=== PATIENT | female | born 1940 | race Caucasian/White ===

== ENCOUNTER 2019-05-19 18:56 | Emergency (ER) | payer OTHER ==
[~2019-05-19] VITALS: Ht 147.3 cm; Wt 58.2 kg
[2019-05-19 22:44] VITALS: BP 157/75
== END 2019-05-19 23:30 | disposition home or self-care (01) ==
LOC: M ED 18:56
DX: K94.09 Other complications of colostomy (principal); I10 Essential (primary) hypertension; Z87.891 Personal history of nicotine dependence; Z88.5 Allergy status to narcotic agent

== ENCOUNTER → 2019-06-02 | Outpatient (CLI) | payer MEDICARE ==
[2019-06-02 16:51] LABS: BASO # 0.2 10^3/uL (0.0-0.2); BASO % 1.4 % (0.0-1.0); EOS # 2.6 10^3/uL (0.0-0.5); HEMATOCRIT 38.3 % (36.0-47.0); HEMOGLOBIN 12.4 g/dl (12.0-15.5); LYMPH # 1.6 10^3/uL (1.5-5.0); LYMPH % 13.5 % (24.0-44.0); MEAN CORPUSCULAR HEMOGLOBIN 30.5 pg (27.0-33.0); MEAN CORPUSCULAR HGB CONC 32.4 g/dl (32.0-36.5); MEAN CORPUSCULAR VOLUME 94.1 fl (80.0-96.0); MONO % 8.7 % (0.0-5.0); NEUTROPHILS % 52.4 % (36.0-66.0); PLATELET COUNT, AUTOMATED 469 10^3/uL (150-450); RED BLOOD COUNT 4.07 10^6/uL (4.00-5.40); WHITE BLOOD COUNT 11.5 10^3/uL (4.0-10.0)
[2019-06-02 17:13] LABS: ALBUMIN 3.5 GM/DL (3.2-5.2); ALT/SGPT 17 U/L (12-78); BILIRUBIN,TOTAL 0.7 MG/DL (0.2-1.0); BLOOD UREA NITROGEN 13 MG/DL (7-18); CALCIUM LEVEL 8.9 MG/DL (8.8-10.2); CARBON DIOXIDE LEVEL 27 MEQ/L (21-32); CHLORIDE LEVEL 104 MEQ/L (98-107); CREATININE FOR GFR 0.74 MG/DL (0.55-1.30); GLOMERULAR FILTRATION RATE > 60.0 (>39); GLUCOSE, FASTING 104 MG/DL (70-100); POTASSIUM SERUM 3.9 MEQ/L (3.5-5.1); SODIUM LEVEL 137 MEQ/L (136-145); TOTAL PROTEIN 7.3 GM/DL (6.4-8.2)
[2019-06-02 17:34] LABS: EOS % 22.6 % (0.0-3.0)
== END ==
LOC: M LAB 15:36
PROVIDERS: ATTEND Surgery
DX: K56.690 Other partial intestinal obstruction (principal)

== ENCOUNTER → 2019-06-10 | Outpatient (CLI) | payer MEDICARE ==
[~2019-06-10] MED LIST: AMBI10TA PO; AMLO10TA5 PO; GASTROGRAFIN SOLUTION 30ML (Q9963) As Ordered ONE; ISOVUE-370 76% 100ML VIAL (Q9967) As Ordered ONE
--- NOTE | 2019-06-11 08:41 | REP ---
CT ABDOMEN AND PELVIS WITH IV AND ORAL CONTRAST: HISTORY: Partial versus complete intestinal obstruction. The patient gives a history of cholecystectomy, hysterectomy, and colostomy. No comparison images are available at this juncture. CT CONTRAST DOSE: 100 mL of intravenous Isovue-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 There are clips in the right upper quadrant. There is a 15 x 21 x 13 mm nodular density with some adjacent fibrosis in the right middle lobe medially adjacent to the mediastinum. This is of uncertain significance. The lung bases are otherwise clear. There is some linear fibrosis in left lower and right lower lobes. No pleural effusion is seen. There are two small subcentimeter low density areas in the liver, consistent with cysts or hemangiomas. These measure 11 and 9 mm in greatest diameter, respectively. No other focal liver lesion is seen. Gallbladder surgically absent. The spleen is normal in size, homogeneous in texture. No abnormalities noted in the pancreas. There is a descending duodenal diverticulum which is fairly large. No adrenal abnormality is observed. There is a tiny subcentimeter cyst in the upper pole of the left kidney with some cortical atrophy. No hydronephrosis is seen. No retroperitoneal mass or adenopathy is seen. There is a diverting colostomy in the right mid abdomen. Small and large bowel loops are otherwise unremarkable in the abdomen. Pelvic CT images demonstrate mild diverticulosis of the sigmoid colon. There is no CT evidence of diverticulitis. No colonic mass lesion is observed. The colon is empty distal to the transverse colostomy. The appendix is not directly visualized, but there is no inflammatory focus at the cecum. No abdominal wall defect is seen. Urinary bladder is unremarkable. Uterus is surgically absent. No significant bony abnormality. IMPRESSION: Transverse colostomy in the right mid abdomen. Mild sigmoid colon diverticulosis. No evidence of bowel obstruction. Descending duodenal diverticulum noted. Post cholecystectomy and hysterectomy. There is a 20 mm nodular opacity in the right middle lobe adjacent to the mediastinum. This is of uncertain significance. Recommend chest CT study. Electronically Signed by Miko Melendez MD 06/11/2019 09:50 A
== END ==
LOC: M RAD 15:56
PROVIDERS: ATTEND Surgery
DX: K56.699 Other intestinal obstruction unspecified as to partial versus complete obstruction (principal); Z93.3 Colostomy status; K57.50 Diverticulosis of both small and large intestine without perforation or abscess without bleeding; R91.8 Other nonspecific abnormal finding of lung field
CPT/HCPCS: 74177; Q9963; Q9967

== ENCOUNTER 2019-06-12 12:48 | Day surgery (SDC) | payer MEDICARE ==
[~2019-06-12] VITALS: Ht 149.9 cm; Wt 58.5 kg
[~2019-06-12 12:48] MED LIST changes: -GASTROGRAFIN SOLUTION 30ML (Q9963) As Ordered ONE; -ISOVUE-370 76% 100ML VIAL (Q9967) As Ordered ONE; +NS 1,000 ML IV ONE
[2019-06-12] MEDS ORDERED: PROPOFOL 200 MG/20 ML VIAL As Ordered ONE (14:23)
[2019-06-12] MEDS ORDERED: LIDOCAINE 2% INJ 100 MG/5 ML SDV (FOR ANES.) As Ordered ONE (14:23)
[2019-06-12] MEDS ORDERED: LABETALOL HCL 100 MG/20 ML VIAL As Ordered ONE (15:05)
[2019-06-12 16:05] VITALS: BP 138/87
--- NOTE | 2019-06-12 16:05 | ROOR ---
Patient Name: Yuko Alves Procedure Date: 06/12/2019 2:52 PM Date of : 1940 Age: 78 Room: [facility] Gender: Female Note Status: Finalized Procedure: Colonoscopy Indications: Follow-up endoscopy after surgery, Follow-up of colonic obstruction. A transverse loop colostomy was created in [place] in early April for a colonic obstruction. Providers: Kedra Priest MD Referring MD: Maria E Clarke Do Requesteliana Provider: Medicines: Monitored Anesthesia Care Complications: No immediate complications. Procedure: Pre-Anesthesia Assessment: - Prior to the procedure, a History and Physical was performed, and patient medications and allergies were reviewed. The patient is competent. The risks and benefits of the procedure and the sedation options and risks were discussed with the patient. All questions were answered and informed consent was obtained. Patient identification and proposed procedure were verified by the physician, the nurse and the anesthesiologist in the procedure room. Mental Status Examination: alert and oriented. Airway Examination: normal oropharyngeal airway and neck mobility. CV Examination: regular rate and rhythm. Prophylactic Antibiotics: The patient does not require prophylactic antibiotics. Prior Anticoagulants: The patient has taken no previous anticoagulant or antiplatelet agents. ASA Grade Assessment: II - A patient with mild systemic disease. After reviewing the risks and benefits, the patient was deemed in satisfactory condition to undergo the procedure. The anesthesia plan was to use monitored anesthesia care (MAC). Immediately prior to administration of medications, the patient was re-assessed for adequacy to receive sedatives. The heart rate, respiratory rate, oxygen saturations, blood pressure, adequacy of pulmonary ventilation, and response to care were monitored throughout the procedure. The physical status of the patient was re-assessed after the procedure. The Colonoscope was introduced through the anus and advanced to the sigmoid colon. The colonoscopy was performed without difficulty. The patient tolerated the procedure well. The quality of the bowel preparation was excellent. The Colonoscope was introduced through the transverse colostomy and advanced to the sigmoid colon to examine a stricture. This was the intended extent. The Colonoscope was introduced through the transverse colostomy and advanced to the cecum, identified by appendiceal orifice and ileocecal valve. Findings: The perianal and digital rectal examinations were normal. The proximal transverse colon, hepatic flexure, ascending colon and cecum appeared normal. Multiple medium-mouthed diverticula were found in the sigmoid colon and descending colon. A benign-appearing, intrinsic severe stenosis measuring of unknown length was found in the sigmoid colon and was non-traversed. An obstruction was identified in the sigmoid colon both on insertion of the scope from below and from above via the ostomy. This was at approximately 25 cm from the anal verge. There was no mass seen. A diffuse area of moderately erythematous mucosa was found in the rectum, in the sigmoid colon, in the descending colon, at the splenic flexure and in the distal transverse colon. The appearance was consistent with some "disuse colitis". Impression: - The proximal transverse colon, hepatic flexure, ascending colon and cecum are normal. - Diverticulosis in the sigmoid colon and in the descending colon. - Stricture in the sigmoid colon. - Erythematous mucosa in the rectum, in the sigmoid colon, in the descending colon, at the splenic flexure and in the distal transverse colon. - No specimens collected. Recommendation: - Discharge patient to home. - Resume previous diet. - Continue present medications. - Return to my office at appointment to be scheduled. - Return to schedule colectomy. Kedar Pirest MD Kedar Priest MD 06/12/2019 4:04:30 PM Electronically signed by Kedar Priest MD Number of Addenda: 0 Note Initiated On: 06/12/2019 2:52 PM Estimated Blood Loss: Estimated blood loss: none.
== END 2019-06-12 16:14 | disposition home or self-care (01) ==
LOC: M OPP 12:48
PROVIDERS: ATTEND Surgery
DX: K62.89 Other specified diseases of anus and rectum (principal); K63.89 Other specified diseases of intestine; K57.30 Diverticulosis of large intestine without perforation or abscess without bleeding; K56.699 Other intestinal obstruction unspecified as to partial versus complete obstruction; Z09 Encounter for follow-up examination after completed treatment for conditions other than malignant neoplasm; Z79.899 Other long term (current) drug therapy; Z88.5 Allergy status to narcotic agent; Z87.891 Personal history of nicotine dependence

== ENCOUNTER 2019-07-02 05:42 | Inpatient (IN) | payer MEDICARE ==
--- NOTE | 2019-06-29 21:57 | HPE ---
ANTICIPATED DATE OF ADMISSION: 07/02/2019 ADMITTING DIAGNOSIS: Sigmoid stricture with diverting transverse loop colostomy. HISTORY OF PRESENT ILLNESS: The patient is a 78-year-old woman who was living in [place] until quite recently. In early April, she presented to a local hospital there with abdominal pain and distension and findings consistent with a sigmoid colon obstruction. She underwent an emergency transverse loop colostomy on 04/24/2019. Once she had healed adequately she relocated to [place]. I saw her in the office on 06/02/2019 for the first time. She had a history of a previous colonoscopy which could not pass the sigmoid colon because of angulation. A workup to determine whether her obstruction was malignant or benign had not been performed in [place]. Her colostomy has been functioning well. She had some lab work done on 06/02/2019 that showed a very mild elevation of her white count to 12 with a significant percentage of eosinophils at 23%. Her chemistry profile showed no significant abnormalities of her liver or renal functions and her carcinoembryonic antigen was normal at 1.7. She was scheduled for a colonoscopy which was done on 06/12/2019. The scope was advanced into the rectum and also in through her loop colostomy which allowed the scope to be passed both proximally to the cecum and also distally to the sigmoid colon. Her colon revealed some diverticulosis within the descending and sigmoid colon. There was a significant stenosis or stricture with angulation in the region of the sigmoid colon. There were no mucosal abnormalities to suggest an underlying malignancy. There was some mild erythema of the rectum suggestive of some "disuse colitis." A CT scan of the abdomen and pelvis was done on 06/10/2019. This revealed her transverse colostomy. She had some mild diverticulosis seen with no evidence of diverticulitis. There were no obvious changes of bowel obstruction seen. Her gallbladder and uterus were both absent. She was noted to have a small nodular opacity in the right middle lobe of the lung adjacent to the mediastinum and this was felt to be of uncertain significance but a CT scan of the chest was recommended and this has not yet been accomplished. The patient is eager to eliminate her colostomy. She is now being admitted to undergo a robotic-assisted laparoscopic sigmoid colectomy as well as closure of her transverse loop colostomy. She is to perform an antibiotic bowel preparation with a limited bowel preparation mechanically as well the day prior to admission. ALLERGIES: The patient reports an allergy to MORPHINE mostly with some nausea and vomiting and some changes in her taste and smell when it is administered. MEDICATIONS: Her only current medication is: - amlodipine daily MEDICAL HISTORY: Is significant for essential hypertension. She denies any other active medical issues. PAST SURGICAL HISTORY: The patient has undergone a cholecystectomy and hysterectomy. She had a colonoscopy several times in the past and then underwent a scope on 06/12/2019. She also has undergone a carpal tunnel release in the past and in 2007 underwent a bilateral reduction mammoplasty. FAMILY HISTORY: Is significant for hypertension and heart disease in her mother and brother. SOCIAL HISTORY: She is a former smoker who quit in 1985. She denies any significant alcohol use. REVIEW OF SYSTEMS: The patient denies any chest pain or palpitations. She has had no cough, wheezing or sputum production. She denies any rectal bleeding. She denies constipation or diarrhea prior to this event. She denies any dysuria or hematuria. She has no significant bone or joint issues at this time. She has no history of DVT or pulmonary embolus. PHYSICAL EXAMINATION: Reveals a pleasant, older woman in no acute distress currently. She is alert and oriented. Skin is warm and dry. Sclerae are anicteric. Neck is supple without mass or bruit. Heart exam shows a regular rate and rhythm. Lungs are clear to auscultation bilaterally. The abdomen is thin and flat. She has an ostomy appliance in the epigastrium. She has a quite large stoma which is approximately 4-5 cm in width. This appears pink and healthy. The abdomen is otherwise nondistended. The abdomen is soft and nontender without appreciable mass. She does have an old scar in the lower abdomen. There is no sign of hernia. Lower extremities show no peripheral edema. She has intact radial and pedal pulses. IMPRESSION: 1. 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 2. Diverting loop transverse colostomy. 3. Hypertension. 4. Right middle lobe nodule pending further evaluation. PLAN: Patient is coming in on 07/02/2019 for sigmoid colectomy with anastomosis and closure of her transverse loop colostomy. She will perform a bowel prep the day before. She was counseled regarding the surgery. Risks include but are not limited to bleeding, infection, scarring, adverse drug reaction, need for further surgery, injury to internal organ, an anastomotic leak, and hernia. She was particularly counseled that she could develop a hernia through her ostomy site. I do not anticipate placing mesh at this site given the need to close the stoma through this incision and given its location in the epigastrium I think that a hernia could easily occur through here and need subsequent repair. The patient had an opportunity to ask questions about the surgery. She desires to proceed. GLORY
[2019-07-02] VITALS (7 sets, daily range): BP systolic 126–160; BP diastolic 67–88
[~2019-07-02] VITALS: Ht 147.3 cm; Wt 60.2 kg
[~2019-07-02 05:42] MED LIST changes: -NS 1,000 ML IV ONE
[2019-07-02] MEDS ORDERED: LACTATED RINGER'S 1000 ML IV ONE (07:00)
[2019-07-02] MEDS ORDERED: LR 1,000 ML IV ONE (07:00)
[2019-07-02] MEDS ORDERED: cefoTEtan DISODIUM 2 GM in D5W MINI-BAG PLUS 50 ML IV ONE ×2 (07:00→20:00)
[2019-07-02] MEDS ORDERED: ALVIMOPAN 12 MG CAPSULE (ENTEREG) PO ONE (07:00)
[2019-07-02 07:01] LABS: ALBUMIN 3.9 GM/DL (3.2-5.2); ALT/SGPT 20 U/L (12-78); BILIRUBIN,TOTAL 1.3 MG/DL (0.2-1.0); BLOOD UREA NITROGEN 12 MG/DL (7-18); CALCIUM LEVEL 9.7 MG/DL (8.8-10.2); CARBON DIOXIDE LEVEL 25 MEQ/L (21-32); CHLORIDE LEVEL 100 MEQ/L (98-107); CREATININE FOR GFR 0.95 MG/DL (0.55-1.30); GLOMERULAR FILTRATION RATE > 60.0 (>39); GLUCOSE, FASTING 118 MG/DL (70-100); POTASSIUM SERUM 3.2 MEQ/L (3.5-5.1); SODIUM LEVEL 136 MEQ/L (136-145); TOTAL PROTEIN 8.8 GM/DL (6.4-8.2)
[2019-07-02] MEDS ORDERED: PROPOFOL 200 MG/20 ML VIAL As Ordered ONE (07:03)
[2019-07-02] MEDS ORDERED: KETOROLAC 60 MG/2 ML VIAL (J1885) As Ordered ONE (07:03)
[2019-07-02] MEDS ORDERED: LIDOCAINE 2% INJ 100 MG/5 ML SDV (FOR ANES.) As Ordered ONE (07:03)
[2019-07-02] MEDS ORDERED: ONDANSETRON 4MG/2ML VIAL (J2405) As Ordered ONE (07:03)
[2019-07-02] MEDS ORDERED: dexameTHASONE 4 MG/ML 1ML VIAL (J1100) As Ordered ONE (07:03)
[2019-07-02] MEDS ORDERED: ROCURONIUM BROMIDE 50 MG/5 ML VIAL As Ordered ONE ×3 (07:03→09:54)
[2019-07-02] MEDS ORDERED: MIDAZOLAM INJ 2 MG/2 ML VIAL (J2250) As Ordered ONE (07:07)
[2019-07-02] MEDS ORDERED: fentaNYL 250 MCG/5 ML INJECTION (J3010) As Ordered ONE ×2 (07:07→09:03)
[2019-07-02] MEDS ORDERED: BUPIVACAINE HCL 0.25% 30 ML VIAL As Ordered ONE (07:13)
[2019-07-02] MEDS ORDERED: LACRILUBE (AKWA TEARS) OPHTH OINT 3.5 GM As Ordered ONE (07:49)
[2019-07-02] MEDS ORDERED: ACETAMINOPHEN 1000MG 100ML IV BTL (OFIRMEV) (J0131 PER 10MG) As Ordered ONE (08:07)
[2019-07-02] MEDS ORDERED: PHENYLephrine HCL 500 MCG/5 ML (100MCG/ML) SYRINGE (J2370) As Ordered ONE (08:10)
[2019-07-02] MEDS ORDERED: SUGAMMADEX SODIUM 500 MG/5 ML VIAL (BRIDION) As Ordered ONE (08:14)
[2019-07-02] MEDS ORDERED: ePHEDrine SULFATE 25 MG/5 ML(5MG/ML) SYRINGE As Ordered ONE (08:36)
[2019-07-02] MEDS ORDERED: LABETALOL HCL 100 MG/20 ML VIAL As Ordered ONE (09:22)
[2019-07-02] MEDS ORDERED: LR 1,000 ML IV SCH (14:00)
[2019-07-02] MEDS ORDERED: ONDANSETRON 4MG/2ML VIAL (J2405) IV PRN ×2 (14:00)
[2019-07-02] MEDS ORDERED: KETOROLAC 30 MG/ML VIAL (J1885) IV PRN (14:00)
[2019-07-02] MEDS ORDERED: PERCOCET 5MG/325MG TAB PO PRN (14:00)
[2019-07-02] MEDS ORDERED: METOCLOPRAMIDE INJ 10MG/2ML VIAL (J2765) IV PRN (14:00)
[2019-07-02] MEDS: fentaNYL 100 MCG/2 ML INJECTION (J3010) IV PRN ×4 (14:07→14:25)
[2019-07-02] MEDS: KETOROLAC 30 MG/ML VIAL (J1885) IV SCH ×2 (15:36→20:39)
[2019-07-02] MEDS: LR 1,000 ML IV SCH ×2 (15:37→20:40)
[2019-07-02] MEDS: oxyCODONE 5MG TAB PO PRN (17:07)
[2019-07-02] MEDS: ACETAMINOPHEN TAB 650MG DOSE (2X325MG) PO SCH ×2 (17:07→23:30)
[2019-07-02] MEDS: ALVIMOPAN 12 MG CAPSULE (ENTEREG) PO SCH (20:39)
--- NOTE | 2019-07-02 21:21 | ECGEPIP ---
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 Electronically Signed on 07-02-2019 21:21:30 EST by Hansel Carter
[2019-07-02] MEDS: ENOXAPARIN 40 MG/0.4 ML SYRINGE (J1650) SC SCH (23:28)
[2019-07-03 01:32] VITALS: BP 124/68
[2019-07-03] MEDS: KETOROLAC 30 MG/ML VIAL (J1885) IV SCH ×4 (02:19→20:16)
[2019-07-03 04:56] VITALS: BP 126/68
[2019-07-03] MEDS: ACETAMINOPHEN TAB 650MG DOSE (2X325MG) PO SCH ×4 (05:47→23:23)
[2019-07-03] MEDS: LR 1,000 ML IV SCH (05:50)
[2019-07-03 07:02] LABS: BASO # 0.1 10^3/uL (0.0-0.2); BASO % 0.9 % (0.0-1.0); EOS # 0.4 10^3/uL (0.0-0.5); EOS % 3.1 % (0.0-3.0); HEMATOCRIT 35.1 % (36.0-47.0); HEMOGLOBIN 11.3 g/dl (12.0-15.5); LYMPH # 1.1 10^3/uL (1.5-5.0); LYMPH % 9.3 % (24.0-44.0); MEAN CORPUSCULAR HEMOGLOBIN 30.1 pg (27.0-33.0); MEAN CORPUSCULAR HGB CONC 32.2 g/dl (32.0-36.5); MEAN CORPUSCULAR VOLUME 93.6 fl (80.0-96.0); MONO # 0.9 10^3/uL (0.0-0.8); MONO % 7.7 % (0.0-5.0); NEUTROPHILS # 9.2 10^3/uL (1.5-8.5); NEUTROPHILS % 78.7 % (36.0-66.0); PLATELET COUNT, AUTOMATED 312 10^3/uL (150-450); RED BLOOD COUNT 3.75 10^6/uL (4.00-5.40); WHITE BLOOD COUNT 11.6 10^3/uL (4.0-10.0)
[2019-07-03 07:41] LABS: ALBUMIN 2.5 GM/DL (3.2-5.2); ALT/SGPT 11 U/L (12-78); BILIRUBIN,TOTAL 1.3 MG/DL (0.2-1.0); BLOOD UREA NITROGEN 7 MG/DL (7-18); CALCIUM LEVEL 8.2 MG/DL (8.8-10.2); CARBON DIOXIDE LEVEL 25 MEQ/L (21-32); CHLORIDE LEVEL 106 MEQ/L (98-107); CREATININE FOR GFR 0.88 MG/DL (0.55-1.30); GLOMERULAR FILTRATION RATE > 60.0 (>39); GLUCOSE, FASTING 90 MG/DL (70-100); POTASSIUM SERUM 3.4 MEQ/L (3.5-5.1); SODIUM LEVEL 139 MEQ/L (136-145)
[2019-07-03] MEDS: ALVIMOPAN 12 MG CAPSULE (ENTEREG) PO SCH ×2 (08:02→20:15)
[2019-07-03] MEDS: amLODIPine 10 MG TAB PO SCH (08:04)
[2019-07-03] MEDS ORDERED: FLUBLOK(EGG FREE)(QUAD)INFLUENZA VACC 0.5ML SYRINGE (90682)18YRS&OLDER IM ONE (09:00)
[2019-07-03 10:09] VITALS: BP 154/73
[2019-07-03] MEDS: oxyCODONE 5MG TAB PO PRN (12:44)
[2019-07-03 15:21] VITALS: BP 171/76
[2019-07-03 20:39] VITALS: BP 166/77
[2019-07-03] MEDS: ENOXAPARIN 40 MG/0.4 ML SYRINGE (J1650) SC SCH (23:24)
[2019-07-04] MEDS: KETOROLAC 30 MG/ML VIAL (J1885) IV SCH ×3 (02:19→11:52)
[2019-07-04 05:27] VITALS: BP 160/80
[2019-07-04] MEDS: ACETAMINOPHEN TAB 650MG DOSE (2X325MG) PO SCH ×2 (05:44→11:52)
[2019-07-04] MEDS: ALVIMOPAN 12 MG CAPSULE (ENTEREG) PO SCH (08:34)
[2019-07-04 08:35] VITALS: BP 160/80
[2019-07-04] MEDS: amLODIPine 10 MG TAB PO SCH (08:35)
--- NOTE | 2019-07-04 10:35 | RO ---
DATE OF PROCEDURE: 07/02/2019 PREOPERATIVE DIAGNOSES: 1. Sigmoid stricture with colonic obstruction. 2. Transverse loop colostomy. POSTOPERATIVE DIAGNOSES: 1. Sigmoid stricture with colonic obstruction. 2. Transverse loop colostomy. PROCEDURES PERFORMED: 1. Robotic assisted laparoscopic sigmoid colectomy with coloproctostomy. 2. Takedown and closure of transverse loop colostomy. SURGEON: Kedar Priest MD MILITARY SOURCE OPERATIONS SPECIALIST: Rolando Angeles MD. Dr. Angeles's assistance was required for assistance in creating the colorectal anastomosis which also required assessing the health of the rectum and determining that additional resection was necessary. ANESTHESIA: General. INDICATIONS FOR THE PROCEDURE: The patient is a 78-year-old woman who in early April presented to a hospital in [place] where she was living at the time with a colonic obstruction in the sigmoid level. She underwent an urgent transverse loop colostomy. She did not have any further evaluation for her obstruction at that time. She relocated to [place]. A colonoscopy shows an angulated area in the sigmoid colon. This was identified on insertion of the scope from the rectum, but it was also impossible to pass the scope in an antegrade fashion through this region from her loop colostomy. The patient had a CT scan that did not identify a mass in the area and it was felt that her obstruction was likely related to scarring from diverticular disease. Her CEA was normal. She is now for a robotic assisted laparoscopic sigmoid colectomy with anastomosis and closure of her transverse loop colostomy. OPERATIVE PROCEDURE: The patient was brought to the operating room and placed on the table in a supine position. She was placed under general endotracheal anesthesia. A Freitas was inserted. She was moved into a low lithotomy position with the lower extremities in padded leg holders. Her colostomy appliance was removed and her stoma was covered with two gauze sponges and a large OpSite dressing was applied. The patient's abdomen and perineum were then prepped and draped sterilely. Initially, the location for four robotic trocar sites, beginning in the left upper quadrant and extending down to the right lower quadrant, were marked. 0.25% Marcaine was infiltrated as necessary. The initial entry was in the left upper quadrant. A Veress needle was inserted and after a positive hanging drop test the abdomen was inflated with carbon dioxide gas. An 8 mm port was placed over a 5 mm scope and this was advanced to the abdominal wall without difficulty. Initial inspection showed some filmy adhesions in the upper abdomen as well as some adhesions to the omentum in the right upper quadrant and right mid abdomen. A second 5 mm trocar was placed in the supraumbilical area. A 12 mm trocar was placed in the medial right lower quadrant and another 8 mm port was placed lower down and more lateral in the right lower quadrant. The robot was brought in from the left and docked to the camera port. Targeting took place in the left lower quadrant. The additional robotic arms were then docked. A grasping retractor was placed with a fourth bipolar and cauterizing scissors. Attention was turned to the descending and sigmoid colon. A few filmy adhesions were identified down in the general vicinity of the juncture of the descending colon and sigmoid colon. These were lysed. Dissection proceeded up along the descending colon, dividing the peritoneum laterally and developing the avascular plane to mobilize the colon medially. After this had been accomplished, about two-thirds of the way up the descending colon, dissection was directed distally. There was some significant scarring of the sigmoid colon to the anterior and lateral abdominal wall. Dissection proceeded gradually working as the plane was identified to mobilize the bowel away from the lateral abdominal wall. There was some significant thickening and angulation of the sigmoid colon. It was possible to mobilize this away from the lateral tissues. Once the sigmoid colon had been mobilized, I elected to transect the colon just proximal to the sigmoid colon. An opening was created through the mesentery. The bowel was then divided with a linear cutter 45 endoscopic stapler with a green load. The distal end of the colon was then elevated with the grasping retractor and using primarily the vessel sealer, dissection proceeded distally dividing the mesentery near the base of the mesentery. I dissected working distally dividing the peritoneum on the right and left sides of the distal sigmoid. The upper tissues of the mesorectum were then divided, also using the vessel sealer, and I worked distally to a point where it appeared that the bowel wall was much more pliant. The mesentery in this area was divided up to the wall of the colon and the bowel was divided with another load of the linear cutter 45 stapler. A second load was required to complete the division. The specimen was set aside within the abdomen. Some of the fibrofatty tissue at the tip of the rectal stump was dissected free to better expose the bowel wall. I elected to proceed with some additional mobilization of the descending colon. Therefore, further division of the attachments in the proximal descending colon was performed up to the level of the splenic flexure. The colon was mobilized nicely along the length of the descending colon and this appeared to give adequate length for an anastomosis in the pelvis. The robot was then undocked and removed. A short incision was made centered on the supraumbilical port site and a small Jason retractor was placed. The specimen was retrieved and sent for permanent pathology. The end of the descending colon was delivered through the wound. The staple line was excised. The wall of the bowel at this level appeared to be slightly thickened on one side, but otherwise soft and supple. A pursestring suture of #2-0 Prolene was placed in the end of the bowel and the anvil of a 29 mm EEA stapler was inserted and the pursestring tied down. This was then washed with saline and then reduced into the abdomen. The surgical team changed gown and gloves at this point. The fascia was closed with interrupted simple sutures of #1 Vicryl. The wound was filled with a moistened gauze. The abdomen was reinflated. Dr. Angeles then went down to the perineum and initially dilated the rectum gently with the EEA sizers. He then advanced the stapler into the anus and up the rectal stump. It seemed that he had been able to advance this just about to the end of the rectal stump, but when he advanced the post of the stapler this did not penetrate the tip of the bowel. With some additional manipulation, it did come closer, but when the post of the stapler was advanced it did not protrude enough for a secure attachment of the anvil. It was clear that there remained some narrowing of the upper end of the rectal stump. The stapler was removed. I elected to re-dock the robot. It was therefore docked with the remaining trocars and I proceeded to dissect an additional 5 cm or so of the rectal stump down to an area where the wall was clearly smooth and soft without any scarring. The area was transected with a linear cutter 45 stapler. This additional fragment was placed in an endopouch and set aside for removal later. With the robot still docked, Dr. Angeles introduced the stapler into the rectum and this time it was clear that it came all the way to the end of the rectal stump. The post of the stapler was advanced and the anvil was attached and fired. There were two excellent tissue donuts identified within the stapler. The bowel was clamped and the pelvis filled with saline and Dr. Angeles insufflated air using a colonoscope. Inspection of the anastomosis showed nice approximation of the tissues with no significant bleeding and no evidence of leak was identified. The anastomosis was estimated to be approximately 12-15 cm from the anal verge. The irrigation was suctioned from the pelvis. The additional fragment of rectum in the endopouch was moved into the upper abdomen. The patient was returned to a flat position. The robot was again undocked and removed. Surgical incisions were all closed with skin karrie. These were covered with moist lap pads and the dressing over her colostomy was removed. An elliptical skin incision was made completely surrounding the stoma with minimal excision of skin. Dissection was then carried down through the subcutaneous tissue circumferentially, freeing the edges of the bowel. The fascial opening was identified and cleared of overlying tissue. Once the colon had been completely freed, it was clear that the mesenteric wall of the bowel remained intact between the two lumens, one proximal and one distal. It was possible to fold the colon back together in such a way that the bowel continuity could be restored with two firings of a TX60G stapler. Several reinforcing sutures of #3-0 Vicryl were placed. The anastomosis appeared to have an adequate lumen with excellent vascularity. This was again irrigated and after ensuring hemostasis this was reduced back into the abdomen. The additional rectal specimen had been removed as the bowel was mobilized. The edges of the fascia were identified. The opening for the colostomy was at least 6-7 cm in length transversely by approximately 3 cm longitudinally. This opening was closed transversely with interrupted simple sutures of #1 Vicryl. The wound was irrigated and several sutures of #2-0 chromic were placed to close the subcutaneous tissue and the skin incision was closed with karrie. The patient's wounds were all dressed with sterile dressings. I elected to leave her Freitas catheter in place overnight. The patient was then awakened in the operating room, extubated and moved to the recovery room in stable condition. GLORY
--- NOTE | 2019-07-04 15:24 | IPN ---
DATE: 07/03/2019 HISTORY: The patient is now postop day #1 from a robotic-assisted sigmoid colectomy with coloproctostomy and takedown of her transverse loop colostomy. She has done very well since surgery. She has been taking liquids well. She reports she has been passing some gas. She is having fairly little pain. She denies any nausea or vomiting. VITAL SIGNS: She has been afebrile. Her pulse has been in the 70s generally. Her blood pressure has been ranging from 120s to as high as 171 systolic. Intake and output show that yesterday she had a total of 3400 in with 1825 out. Her urine output was almost 1800 yesterday. PHYSICAL EXAMINATION: The patient is alert. She is oriented. Heart exam shows a regular rhythm. The lungs are clear. The abdomen is flat. Her dressings are dry. She has bowel sounds present and the abdomen is without any undue tenderness. Laboratory studies include a CBC that showed a white count of 12, hemoglobin of 11, hematocrit 35 and platelet count of 312,000. Differential count showed 79% neutrophils, 9% lymphocytes and 8% monocytes. Chemistry profile showed a sodium of 139, potassium 3.4, chloride 106, CO2 of 25, BUN of 7, creatinine 0.88 and a glucose of 90. IMPRESSION: The patient is doing extremely well. She has been tolerating clear liquids without difficulty. PLAN: The patient will be advanced to a regular diet. Her Freitas catheter will be removed. I will saline lock her IV. The patient was encouraged to be up ambulating. I would anticipate she will be ready for discharge in the next 1-2 days. GLORY
--- NOTE | 2019-07-04 15:28 | IPN ---
DATE: 07/04/2019 HISTORY: The patient is now postop day #2 from a robotic-assisted laparoscopic sigmoid colectomy with coloproctostomy and takedown of her transverse loop colostomy. The patient is doing extremely well and when I walked into her room she asked if she could go home. She denies any nausea or vomiting. She has had several generally loose bowel movements. She is passing gas. She has very little discomfort. She has been getting some routine low-dose Toradol and Tylenol on a scheduled basis. She had one Vincent tablet yesterday. VITAL SIGNS: She has been afebrile. Her pulse is in the 70s and her blood pressure is running in the low to mid 160s systolic with a normal diastolic pressure. Intake and output show that yesterday she had 3300 in with 5000 out. She has not been reporting all of her bowel movements to the nurses. PHYSICAL EXAMINATION: She is alert and oriented and looks comfortable. Her abdomen is flat. Dressings are all removed and her wounds are all clean with no sign of infection. She has active bowel sounds and the abdomen is soft with no expected tenderness. IMPRESSION: The patient is doing extremely well postop day #2 from her surgery. PLAN: The patient will be discharged home. She will continue her current medication for blood pressure. She was encouraged to use [id number]-[id number] medications as necessary for pain. I advised her that if she discovers that she is having enough pain to warrant a narcotic pain reliever she can contact me and that could be provided. She will be allowed to shower ad cayden. She was advised against any strenuous physical activity. She will follow up in the office next week for removal of her surgical karrie. By then, we should also have her pathology report. GLORY
--- NOTE | 2019-07-14 18:18 | DSES ---
DATE OF ADMISSION: 07/02/2019 DATE OF DISCHARGE: 07/04/2019 ADMITTING DIAGNOSIS: Sigmoid stricture with diverting transverse loop colostomy. HISTORY OF PRESENT ILLNESS: The patient is a 78-year-old woman who in early April 2018 in [place] underwent an urgent transverse loop colostomy for a sigmoid colon obstruction. She subsequently relocated to [place]. She has been evaluated with CT scan and colonoscopy as to the etiology of her sigmoid obstruction. No tumor was identified and it is felt most likely that this is due to a diverticulitis-related stricture. She is now admitted to the hospital for sigmoid colectomy with takedown of her colostomy. HOSPITAL COURSE: The patient was admitted to the hospital on 07/02/2019. She was taken directly to the operating room. She underwent a robotic-assisted laparoscopic sigmoid colectomy with coloproctostomy as well as a takedown and closure of her transverse loop colostomy. Her postoperative course was unremarkable. Her diet was rapidly advanced back to regular and she had return of bowel function. She had little discomfort. She was discharged home on 07/04/2019. FINAL DIAGNOSES: 1. 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 2. Diverting transverse loop colostomy. 3. Hypertension. 4. Right middle lobe lung nodule, pending further evaluation. PROCEDURE PERFORMED: 1. Robotic-assisted laparoscopic sigmoid colectomy with coloproctostomy. 2. Takedown and closure of transverse loop colostomy. DISPOSITION: She was discharged home on 07/04/2019. She was taking a regular diet. She was advised that she could shower as desired. She was advised against any strenuous physical activity or lifting greater than 25 pounds. She was to call the office for fevers or chills, increasing abdominal pain or signs of infection. She was to followup in the office with me on 07/09/2019 at 11:00 o'clock in the morning. She was not provided any new medications. She was to take Tylenol or other iyku-jyv-fzrbvsw medications as needed for pain. GLORY
== END 2019-07-04 12:40 | disposition home or self-care (01) | DRG 331 ==
LOC: M OR 05:42 → M MS5PR 15:00
PROVIDERS: ADMIT Surgery; ATTEND Surgery
PROC: 0DBM4ZZ Excision of Descending Colon, Percutaneous Endoscopic Approach (ICD-10-PCS; 2019-07-02)
PROC: 8E0W4CZ Robotic Assisted Procedure of Trunk Region, Percutaneous Endoscopic Approach (ICD-10-PCS; 2019-07-02)
PROC: 0DTN4ZZ Resection of Sigmoid Colon, Percutaneous Endoscopic Approach (ICD-10-PCS; principal; 2019-07-02 07:30)
DX: K56.609 Unspecified intestinal obstruction, unspecified as to partial versus complete obstruction (principal); K57.30 Diverticulosis of large intestine without perforation or abscess without bleeding; Z90.49 Acquired absence of other specified parts of digestive tract; Z90.79 Acquired absence of other genital organ(s); Z88.6 Allergy status to analgesic agent; Z79.899 Other long term (current) drug therapy; I10 Essential (primary) hypertension; Z43.3 Encounter for attention to colostomy; R91.1 Solitary pulmonary nodule

== ENCOUNTER → 2019-07-30 | Outpatient (REF) | payer MEDICARE ==
[2019-07-30 12:25] LABS: BLOOD UREA NITROGEN 17 MG/DL (7-18); CALCIUM LEVEL 8.6 MG/DL (8.8-10.2); CARBON DIOXIDE LEVEL 26 MEQ/L (21-32); CHLORIDE LEVEL 103 MEQ/L (98-107); CREATININE FOR GFR 0.76 MG/DL (0.55-1.30); GLOMERULAR FILTRATION RATE > 60.0 (>39); GLUCOSE, FASTING 88 MG/DL (70-100); POTASSIUM SERUM 3.6 MEQ/L (3.5-5.1); SODIUM LEVEL 137 MEQ/L (136-145)
== END ==
LOC: M SFHCPLAZ 09:40
PROVIDERS: ATTEND Family Medicine
DX: I10 Essential (primary) hypertension (principal)

== ENCOUNTER → 2019-08-19 | Outpatient (CLI) | payer MEDICARE ==
[~2019-08-19] MED LIST changes: +ISOVUE-370 76% 100ML VIAL (Q9967) As Ordered ONE
--- NOTE | 2019-08-19 14:10 | REP ---
CT of the chest for lung nodule. Followup: Comparison is a CT of the abdomen pelvis dated 06/10/2019. There is a pericardial lung nodule medially in the right middle lobe on image 54 today measuring 21 ml craniocaudad on the coronal views by 15 mm transversely by 12 mm AP. Previously this nodule measured 21 x 15 x 13 mm and has not significantly changed in size. There are no other lung nodules or masses. There are no infiltrates or pleural effusions. There is a stable focal zone of atelectasis/scar at the inferior tip of the lingula, unchanged. There is no mediastinal, hilar or axillary lymphadenopathy. The thoracic aorta is unremarkable. Cardiac size is normal. There is no pericardial effusion. The visualized upper abdomen. There are surgical clips in the gallbladder fossa. There is no adrenal mass. There is cortical scarring in the upper pole left kidney, unchanged. The two small hypodensities in the liver are unchanged, again compatible with hemangiomas. Impression: The right middle lobe lung nodule adjacent to the pericardium is unchanged in size. There are no other lung nodules or masses. Focal zone of atelectasis/scarring is unchanged in the inferior tip of the lingula. The two small hypodensities in the liver are unchanged, compatible with hemangiomas. Focal cortical scarring in the upper pole of the left kidney, unchanged. Electronically Signed by Natanael Barfield MD 08/19/2019 02:02 P
== END ==
LOC: M RAD 08:24
PROVIDERS: ATTEND Obstetrics & Gynecology
DX: R91.1 Solitary pulmonary nodule (principal); K76.89 Other specified diseases of liver; J98.4 Other disorders of lung
CPT/HCPCS: 71260; Q9967

== ENCOUNTER → 2019-09-08 | Outpatient (CLI) | payer MEDICARE ==
[~2019-09-08] MED LIST changes: -ISOVUE-370 76% 100ML VIAL (Q9967) As Ordered ONE
--- NOTE | 2019-09-23 11:00 | REPMRS ---
Patient History The patient states she had a clinical breast exam in July 2019.Patient is postmenopausal. No known family history of cancer. Digital Woman Screen Mammo: September 08, 2019 - Exam #: [id number] Bilateral CC and MLO view(s) were taken. Technologist: Abril Celeste, Technologist Prior study comparison: December 11, 2016, bilateral digital woman screen mammo, performed at [facility]. December 10, 2015, bilateral digital woman screen mammo, performed at [facility]. October 22, 2014, bilateral digital woman screen mammo, performed at [facility]. FINDINGS: The breast tissue is almost entirely fat. There is a 4 mm nodular density in the 12 o'clock position of the right breast which merits further evaluation. It is larger in appearance than on prior mammography. There has been no other change in the appearance of the mammogram from the prior studies. There is no other interval development of dominant mass, architectural distortion, or grouped microcalcification typical of malignancy. 3-D tomosynthesis shows no additional findings. Assessment: BI-RADS/ACR category 0 mammogram, Incomplete: Need additional imaging evaluation and/or prior mammograms for comparison. Recommendation Ultrasound and special view mammogram of the right breast. This patient's Lifetime Breast Cancer RIsk is estimated at 1.3 %. This mammogram was interpreted with the aid of an FDA-approved computer-aided dectection system. Electronically Signed By: Florentino Melendez MD 09/23/19 1100
--- NOTE | 2019-09-30 12:38 | DEXA ---
AP SPINE L1 - L4 0.778 -3.4 -1.5 LT FEMUR TOTAL 0.813 -1.5 0.5 LT NECK 0.742 -2.1 0.0 RT FEMUR TOTAL 0.817 -1.5 0.5 RT NECK 0.718 -2.3 -0.2 TOTAL BODY TOTAL OTHER COMMENTS: There is low bone density of the hips. There is osteoporosis of the spine. The density of the spine is decreased 14.5% since the initial exam on 07/12/2000. The spine density has decreased 9.6% since the most recent exam on 03/14/2011. The density of the left hip has decreased 15.6% since the initial exam on 07/12/2000. The density of the left hip has decreased 10.8% since the most recent exam on 03/14/2011. The density of the right hip has decreased 10.4% since the initial exam on 07/12/2000. The density of the right hip has decreased 10.3% since the most recent exam on 03/14/2011. FOLLOW-UP: Recommendation for the next bone density exam: 2 years. GLORY
== END ==
LOC: M WHC 10:50
PROVIDERS: ATTEND Obstetrics & Gynecology
DX: Z12.31 Encounter for screening mammogram for malignant neoplasm of breast (principal); M81.0 Age-related osteoporosis without current pathological fracture; M85.851 Other specified disorders of bone density and structure, right thigh; M85.852 Other specified disorders of bone density and structure, left thigh

== ENCOUNTER → 2019-09-29 | Outpatient (CLI) | payer MEDICARE ==
--- NOTE | 2019-09-29 09:09 | REP ---
Right abdominal wall ultrasound: History: Assess for incisional hernia. Findings: Scanning through the right upper anterior abdominal wall demonstrates a 7 mm slightly hypoechoic area in the subcutaneous fat. I am not convinced this represents a abdominal wall hernia. It appears to be superficial to the presumed peritoneal lining. At the medial edge of the scar there is a small hypoechoic tract extending to the overlying skin approximately 7 mm in thickness. This may be granulation tissue. Impression: No definite hernia seen. Consider CT scanning. The peritoneal lining less than confidently identified. There is a 7 mm hypoechoic tract like area extending to the overlying dermis in the medial aspect of the incision. Electronically Signed by Miko Melendez MD 09/29/2019 10:52 A
--- NOTE | 2019-09-29 11:22 | REP ---
C-SPINE SERIES: SEVEN VIEWS. HISTORY: Neck pain. FINDINGS: There is straightening of the normal cervical lordosis. Flexion, extension lateral views show no subluxation or instability. Degenerative disc narrowing is seen at C6-7. There is discogenic spurring anteriorly at this level. Open-mouth odontoid view is unremarkable. The AP view demonstrates osteoarthritic facet hypertrophy and sclerosis bilaterally in the mid cervical spine. There is a mild levoconvex curve in the cervical spine on the AP view. Oblique images demonstrate intact neural foramina on the left. On the right, there is uncovertebral spurring at the C4-5 level, mild in degree. IMPRESSION: Degenerative spondylosis changes as above. No acute bony abnormality. Electronically Signed by Miko Melendez MD 09/29/2019 05:41 P
== END ==
LOC: M RAD 07:55
PROVIDERS: ATTEND Obstetrics & Gynecology
DX: K43.2 Incisional hernia without obstruction or gangrene (principal); M48.02 Spinal stenosis, cervical region

== ENCOUNTER → 2019-10-06 | Outpatient (CLI) | payer MEDICARE ==
--- NOTE | 2019-10-06 13:54 | REP ---
DIAGNOSTIC MAMMOGRAM RIGHT BREAST WITH RIGHT BREAST ULTRASOUND: Multiple spot compression views of the right breast performed and correlated with the prior mammogram of 09/08/2019. These images confirm the presence of a well circumscribed 4 mm nodule at the 12 o'clock position of the right breast. Real-time sonographic evaluation of the 12 o'clock region of the right breast demonstrates a 3 mm cyst corresponding to the mammographic abnormality. IMPRESSION: BIRADS 2: BI-RADS/ACR category 2 mammogram. Benign Findings. Well circumscribed 4 mm nodule at the 12 o'clock position of the right breast corresponds to a cyst by ultrasound and is benign. Recommend followup mammogram in 1 year. The patient letter being requested is M1.
== END ==
LOC: M WHC 08:29
PROVIDERS: ATTEND Obstetrics & Gynecology
DX: N60.01 Solitary cyst of right breast (principal)

== ENCOUNTER → 2019-10-09 | Outpatient (REF) | payer MEDICARE ==
[2019-10-09 12:25] LABS: CALCIUM LEVEL 9.2 MG/DL (8.8-10.2); CREATININE FOR GFR 1.02 MG/DL (0.55-1.30); GLOMERULAR FILTRATION RATE 55.5 (>32); POTASSIUM SERUM 4.1 MEQ/L (3.5-5.1)
[2019-10-09 12:33] LABS: TOTAL 25(OH) VITAMIN D 49.6 NG/ML (30.0-100.0)
== END ==
LOC: M LABDRWAD 11:48
PROVIDERS: ATTEND Obstetrics & Gynecology
DX: M81.0 Age-related osteoporosis without current pathological fracture (principal)

== ENCOUNTER → 2019-10-23 | Outpatient (REF) | payer MEDICARE ==
[2019-10-23 13:54] LABS: BASO # 0.1 10^3/uL (0.0-0.2); BASO % 1.5 % (0.0-1.0); EOS # 0.2 10^3/uL (0.0-0.5); EOS % 2.4 % (0.0-3.0); HEMATOCRIT 42.2 % (36.0-47.0); HEMOGLOBIN 13.7 g/dl (12.0-15.5); LYMPH # 1.6 10^3/uL (1.5-5.0); LYMPH % 21.5 % (24.0-44.0); MEAN CORPUSCULAR HGB CONC 32.5 g/dl (32.0-36.5); MEAN CORPUSCULAR VOLUME 89.2 fl (80.0-96.0); MONO # 0.7 10^3/uL (0.0-0.8); MONO % 9.8 % (0.0-5.0); NEUTROPHILS # 4.8 10^3/uL (1.5-8.5); PLATELET COUNT, AUTOMATED 325 10^3/uL (150-450); RED BLOOD COUNT 4.73 10^6/uL (4.00-5.40); WHITE BLOOD COUNT 7.5 10^3/uL (4.0-10.0)
[2019-10-23 14:16] LABS: ALBUMIN 3.9 GM/DL (3.2-5.2); BILIRUBIN,TOTAL 0.7 MG/DL (0.2-1.0); CALCIUM LEVEL 8.8 MG/DL (8.8-10.2); CREATININE FOR GFR 0.99 MG/DL (0.55-1.30); GLOMERULAR FILTRATION RATE 57.5 (>32); MAGNESIUM LEVEL 2.3 MG/DL (1.8-2.4); POTASSIUM SERUM 4.2 MEQ/L (3.5-5.1); TOTAL PROTEIN 7.3 GM/DL (6.4-8.2)
[2019-10-23 14:57] LABS: HEMOGLOBIN A1c 6.1 %
== END ==
LOC: M SFHCPLAZ 12:47
PROVIDERS: ATTEND Family Medicine
DX: I10 Essential (primary) hypertension (principal); R60.0 Localized edema; R73.01 Impaired fasting glucose

== ENCOUNTER → 2019-10-23 | Outpatient (CLI) | payer MEDICARE ==
--- NOTE | 2019-10-23 16:31 | REP ---
Duplex extremity venous ultrasound: Right lower extremity. History: Edema in the right lower extremity. Rule out DVT. Findings: The deep veins are anechoic and fully compressible from the groin to the popliteal fossa in the right lower extremity. Color flow imaging is homogeneous. Spectral Doppler interrogation demonstrates intact respiratory variation in flow and normal manual augmentation of flow. There is no evidence of deep vein thrombosis. Impression: Negative right lower extremity duplex venous ultrasound. No evidence of deep vein thrombosis. Electronically Signed by Miko Melendez MD 10/23/2019 04:22 P
== END ==
LOC: M RAD 15:47
PROVIDERS: ATTEND Family Medicine
DX: R60.0 Localized edema (principal)

== ENCOUNTER → 2019-11-10 | Outpatient (REF) | payer MEDICARE ==
[2019-11-10 17:53] LABS: CALCIUM LEVEL 9.1 MG/DL (8.8-10.2); CREATININE FOR GFR 1.18 MG/DL (0.55-1.30); GLOMERULAR FILTRATION RATE 46.9 (>32); POTASSIUM SERUM 3.6 MEQ/L (3.5-5.1)
== END ==
LOC: M SFHCPLAZ 15:43
PROVIDERS: ATTEND Family Medicine
DX: I10 Essential (primary) hypertension (principal)

== ENCOUNTER → 2019-11-24 | Outpatient (REF) | payer MEDICARE ==
[2019-11-24 18:04] LABS: CALCIUM LEVEL 9.2 MG/DL (8.8-10.2); CREATININE FOR GFR 0.98 MG/DL (0.55-1.30); GLOMERULAR FILTRATION RATE 58.1 (>32); POTASSIUM SERUM 3.8 MEQ/L (3.5-5.1)
== END ==
LOC: M SFHCPLAZ 14:28
PROVIDERS: ATTEND Family Medicine
DX: I10 Essential (primary) hypertension (principal)

== ENCOUNTER → 2019-12-17 | Outpatient (REF) | payer MEDICARE ==
[2019-12-17 15:50] LABS: CALCIUM LEVEL 8.7 MG/DL (8.8-10.2); CREATININE FOR GFR 1.15 MG/DL (0.55-1.30); GLOMERULAR FILTRATION RATE 48.3 (>32); POTASSIUM SERUM 4.2 MEQ/L (3.5-5.1)
== END ==
LOC: M SFHCPLAZ 13:32
PROVIDERS: ATTEND Family Medicine
DX: I10 Essential (primary) hypertension (principal)

== ENCOUNTER → 2020-01-12 | Outpatient (REF) | payer MEDICARE ==
[2020-01-12 13:36] LABS: BLOOD UREA NITROGEN 25 MG/DL (7-18); CALCIUM LEVEL 9.3 MG/DL (8.8-10.2); CARBON DIOXIDE LEVEL 26 MEQ/L (21-32); CHLORIDE LEVEL 107 MEQ/L (98-107); CREATININE FOR GFR 0.86 MG/DL (0.55-1.30); GLOMERULAR FILTRATION RATE > 60.0 (>32); GLUCOSE, FASTING 86 MG/DL (70-100); POTASSIUM SERUM 4.5 MEQ/L (3.5-5.1); SODIUM LEVEL 141 MEQ/L (136-145)
== END ==
LOC: M SFHCPLAZ 10:24
DX: I10 Essential (primary) hypertension (principal)

== ENCOUNTER → 2020-02-11 | Outpatient (CLI) | payer MEDICARE ==
[~2020-02-11] MED LIST changes: -AMLO10TA5 PO; +AMLO1TAB25 PO; +CAND32TA9 PO; +DILT1CAP PO; +EQL400CA9 PO; +ESZO1TAB4 PO
== END ==
LOC: M EKG 11:06
PROVIDERS: ATTEND Anesthesiology
DX: Z01.818 Encounter for other preprocedural examination (principal); I10 Essential (primary) hypertension

== ENCOUNTER 2020-02-24 06:30 | Day surgery (SDC) | payer MEDICARE ==
[~2020-02-24] VITALS: Ht 147.3 cm; Wt 68.0 kg
[2020-02-24] MEDS ORDERED: BUPIVACAINE HCL 0.25% 30ML VIAL As Ordered ONE (07:17)
[2020-02-24] MEDS ORDERED: ROCURONIUM BROMIDE 50 MG/5 ML VIAL As Ordered ONE ×2 (08:23→09:11)
[2020-02-24] MEDS ORDERED: LIDOCAINE 2% 100MG/5ML SDV (FOR ANES.) As Ordered ONE (08:23)
[2020-02-24] MEDS ORDERED: propofoL 200 MG/20 ML VIAL As Ordered ONE (08:23)
[2020-02-24] MEDS ORDERED: fentaNYL 250 MCG/5 ML INJECTION (J3010) As Ordered ONE (08:24)
[2020-02-24] MEDS ORDERED: MIDAZOLAM INJ 2MG/2ML VIAL (J2250 PER 1MG) As Ordered ONE (08:24)
[2020-02-24] MEDS ORDERED: ONDANSETRON 4MG/2ML VIAL As Ordered ONE (08:57)
[2020-02-24] MEDS ORDERED: dexameTHASONE 4 MG/ML 1ML VIAL (J1100 PER 1MG) As Ordered ONE (08:57)
[2020-02-24] MEDS ORDERED: KETOROLAC 60MG 2ML VIAL As Ordered ONE (08:58)
[2020-02-24] MEDS ORDERED: SUGAMMADEX SODIUM 500 MG/5 ML VIAL (BRIDION) As Ordered ONE (09:11)
[2020-02-24] MEDS ORDERED: oxyCODONE 5MG TAB As Ordered ONE ×2 (10:56→12:28)
[2020-02-24] MEDS ORDERED: fentaNYL 100 MCG/2 ML INJECTION (J3010) As Ordered ONE (11:01)
--- NOTE | 2020-04-29 11:53 | RO ---
DATE OF OPERATION: 02/24/2020 PREOPERATIVE DIAGNOSIS: Right upper quadrant incisional hernia. POSTOPERATIVE DIAGNOSIS: Ventral incisional hernias of the right upper quadrant and the upper midline. PROCEDURE PERFORMED: Robotic assisted laparoscopic repair of midline and right upper quadrant incisional hernias with mesh SURGEON: Kedar Priest M.D. MICA SPREADER: WENDY Santillan was essential for assisting in positioning of the robot, selecting trocar sites, and manipulating the arms and instruments as needed during the course of the procedure, as well as passage of sutures and mesh. She also assisted in closure of the abdominal incisions. ANESTHESIA: General. INDICATIONS FOR PROCEDURE: The patient is an 79-year-old woman who had undergone a diverting transverse loop colostomy in late 2018. This was for an obstruction of the sigmoid colon caused by diverticular disease. She subsequently underwent a sigmoid colectomy with takedown of her colostomy. She developed a hernia at the colostomy site and is now for robotic-assisted repair of her incisional hernia. DESCRIPTION OF PROCEDURE: The patient was brought to the operating room and placed on the table in a supine position. She was placed under general endotracheal anesthesia. The patients abdomen was prepped and draped in a sterile fashion. TEDs and sequentials were utilized. A 0.25% Marcaine was infiltrated at each of the trocar sites as needed. Initially, a site for placement of the Veress needle was selected in the left lower quadrant. A short transverse incision was made. The Veress needle was inserted and after positive hanging drop test, the abdomen was insufflated with carbon dioxide gas. An 8-mm robotic port was placed over the 5-mm scope and advanced through the abdominal wall without difficulty. Initial examination showed some adhesions primarily along the midline and up in the right upper quadrant. There were, however, some adhesions also in the lower abdomen as well. A second 8-mm port was placed slightly higher up and to the right. Working through this port, some of these adhesions were lysed using a handheld laparoscopic cauterizing scissor. Once the abdominal wall had been cleared of many of these adhesions, a third port was placed also in the lower abdomen to have three evenly spaced robotic ports across the left lower quadrant extending from about the midline to the left mid abdomen. The patient cart of the [employer] Xi robot was brought into position and the endoscope port was docked. Targeting took place in the right upper quadrant at the site of her hernia. The additional robotic arms were docked. A cauterizing scissor and force bipolar were inserted. I then moved to the control consol. Dissection proceeded to free up some additional adhesions in the upper abdomen, the general area below, and medial to the hernia site. As these were cleared away, the location of the hernia became more apparent. It was noted in taking down the adhesions along the midline that she had one small defect that was about 1.5 cm in diameter with several additional areas of thinning of the fascia along the midline just above this. Some attachments of the omentum at the area of the opening of the large hernia in the right upper quadrant were divided. This was a combination of sharp and cautery dissection. There was a loop of what appeared to be transverse colon that was somewhat adherent along the medial aspect of the hernia defect and this was freed with care to avoid damaging the bowel. Some omentum up into the hernia was freed of some filmy adhesion and this was all allowed to fall back into the abdomen. The fascial defect was found to be approximately 5 cm in width by 7 to 7.5 cm in length and somewhat obliquely oriented in the right upper quadrant. I elected to attempt closure of this defect primarily. The pressure within the abdomen was reduced to approximately 10 mmHg. The left abdominal trocar was converted to a 12 to allow passage of #1 STRATAFIX sutures. A #1 STRATAFIX was inserted and I began to close the fascial defect at its right end and work toward the middle. When the fascial defect was approximately one-third closed, a second suture of #1 STRATAFIX was begun at the opposite end of the defect and this was sewed also toward the middle. It was thus possible to work from both ends toward the middle and obtain a secure closure of the fascia with the #1 STRATAFIX with two sutures overlapping somewhat in the middle. A #0 STRATAFIX was used to close the small fascial defect along the midline and also reinforce the thinned areas of the midline just above this. I then selected a 15 cm Parietex round patch for mesh coverage. This was reference code [id number] and Lot # [id number]. This was rolled and inserted into the abdomen. This was placed over the sutured fascial defect, but was positioned in such a way that it also covered the midline sutured defect with excellent coverage of this area, but also extending superiorly and laterally enough to give good lateral coverage of the sutured main hernia defect. This was sutured approximately at the midpoint to the abdominal wall using a 2-0 V-Loc suture. This was then carried up to the top edge as viewed through the robotic instrumentation and then, this was carried around the border of the mesh carrying this approximately one-quarter to one-third of the way around the circumference of the mesh. A second suture was then begun and carried around the circumference of the suture further. A third and fourth suture were then utilized to complete the suturing of the mesh both across the middle of the mesh and then completely around the periphery. This appeared to give an excellent coverage of all areas without any significant bleeding. Final inspection revealed no bleeding. The area of the previous adhesiolysis was inspected and again, there was no sign of bleeding. The robotic instruments were removed and the robot undocked. A Flynn-Dickens device was used to place a suture of 0-Vicryl in the 12-mm port of the left upper abdomen without difficulty. The abdomen was then deflated and the remaining trocars were removed. The incisions were all closed with buried sutures of 4-0 Vicryl and Steri-Strips. Light dressings were applied. The patient tolerated the procedure well without apparent complication. She was awakened in the operating room, extubated, and moved to the recovery room in stable condition. GLORY
[2020-05-02 14:36] LABS: HEMATOCRIT 41.8 % (36.0-47.0); MEAN CORPUSCULAR HEMOGLOBIN 29.7 pg (27.0-33.0); MEAN CORPUSCULAR HGB CONC 33.5 g/dl (32.0-36.5); MEAN CORPUSCULAR VOLUME 88.7 fl (80.0-96.0); PLATELET COUNT, AUTOMATED 271 10^3/uL (150-450); RED BLOOD COUNT 4.71 10^6/uL (4.00-5.40); WHITE BLOOD COUNT 8.7 10^3/uL (4.0-10.0)
== END 2020-02-24 12:40 | disposition home or self-care (01) ==
LOC: M SDC 06:30
PROVIDERS: ATTEND Surgery
DX: K43.2 Incisional hernia without obstruction or gangrene (principal); K21.9 Gastro-esophageal reflux disease without esophagitis; K57.92 Diverticulitis of intestine, part unspecified, without perforation or abscess without bleeding; I10 Essential (primary) hypertension; Z88.5 Allergy status to narcotic agent; Z79.899 Other long term (current) drug therapy
CPT/HCPCS: 49654; 85027; C1781; J1100; J1885; J2250; J2405; J3010

== ENCOUNTER → 2020-04-08 | Outpatient (REF) | payer MEDICARE ==
[2020-04-08 17:18] LABS: APPEARANCE, URINE CLEAR (CLEAR); BACTERIA, URINE AUTO 1+ (NEGATIVE); BILIRUBIN, URINE AUTO NEGATIVE (NEGATIVE); BLOOD, URINE BLOOD 1+ (NEGATIVE); COLOR, URINE YELLOW (YELLOW); GLUCOSE, URINE (UA) AUTO NEGATIVE (NEGATIVE); KETONE, URINE AUTO NEGATIVE (NEGATIVE); LEUKOCYTE ESTERASE, URINE AUTO 2+ (NEGATIVE); NITRITE, URINE AUTO NEGATIVE (NEGATIVE); PROTEIN, URINE AUTO NEGATIVE (NEGATIVE); RBC, URINE AUTO 5 /HPF (0-3); SPECIFIC GRAVITY URINE AUTO 1.017 (1.002-1.035); SQUAMOUS EPITHELIAL CELL UR AU 1 /HPF (0-6); TRANSITIONAL EPITHELIAL AUTO 1 /HPF; UROBILINOGEN, URINE AUTO 0.2 mg/dL (0.0-2.0); WBC, URINE AUTO 26 /HPF (0-3)
[2020-04-08 18:54] LABS: CALCIUM LEVEL 9.1 MG/DL (8.8-10.2); CREATININE FOR GFR 1.02 MG/DL (0.55-1.30); GLOMERULAR FILTRATION RATE 55.5 (>32); POTASSIUM SERUM 4.6 MEQ/L (3.5-5.1)
[2020-04-08 19:02] LABS: HEMOGLOBIN A1c 6.1 %
== END ==
LOC: M SFHCPLAZ 16:05
PROVIDERS: ATTEND Family Medicine
DX: I10 Essential (primary) hypertension (principal)

== ENCOUNTER → 2020-11-03 | Outpatient (CLI) | payer MEDICARE ==
--- NOTE | 2020-11-03 12:30 | REPMRS ---
Patient History The patient states she has not had a clinical breast exam in over a year. Patient is postmenopausal. No known family history of cancer. Reductions of both breasts, 2002. Digital Woman Screen Mammo: November 03, 2020 - Exam #: [id number] Bilateral CC and MLO view(s) were taken. Technologist: Alissa Sinha, Technologist Prior study comparison: October 06, 2019, bilateral diagnostic unilateral mammo performed at [facility]. September 08, 2019, bilateral digital woman screen mammo performed at [facility]. December 11, 2016, bilateral digital woman screen mammo, performed at [facility]. December 10, 2015, bilateral digital woman screen mammo, performed at [facility]. FINDINGS: There are scattered fibroglandular densities. The Volpara volumetric breast density category is:B. A small cyst previously identified in the right breast is not apparent today. There has been no change in the appearance of the mammogram from the prior studies. There is a mild amount of scattered fibroglandular density which is fairly symmetric. There is no interval development of dominant mass, architectural distortion, or grouped microcalcification suggestive of malignancy. 3-D tomosynthesis shows no additional findings. Assessment: BI-RADS/ACR category 1 mammogram. Negative Mammogram. Recommendation Routine screening mammogram of both breasts in 1 year (for women over age 40). This patient's [facility] Lifetime Breast Cancer Risk is estimated at 1.0 %. This mammogram was interpreted with the aid of an FDA-approved computer-aided dectection system. Electronically Signed By: Florentino Melendez MD 11/03/20 [id number]
== END ==
LOC: M WHC 10:28
PROVIDERS: ATTEND Student in an Organized Health Care Education/Training Program
DX: Z12.31 Encounter for screening mammogram for malignant neoplasm of breast (principal)

== ENCOUNTER → 2020-12-13 | Outpatient (CLI) | payer MEDICARE ==
--- NOTE | 2020-12-13 16:42 | REPPI ---
INDICATION: M79.642 PAIN IN LEFT HAND COMPARISON: None. TECHNIQUE: AP, lateral, bilateral oblique views left hand. FINDINGS: Generalized osteopenia and degenerative changes noted throughout the wrist and hand. Findings include cortical irregularity, subchondral sclerosis and joint space narrowing primarily at the 1st carpometacarpal joint as well as the 1st metacarpophalangeal joint and 1st through 5th interphalangeal joints. There is no evidence for acute fracture or dislocation. No periarticular lucencies or erosive changes. No significant osteophytes. IMPRESSION: Generalized osteopenia and degenerative changes throughout the wrist and hand. <Electronically signed by Law Xavier > 12/13/20 [id number]
== END ==
LOC: M PLAIMG 15:46
PROVIDERS: ATTEND Student in an Organized Health Care Education/Training Program
DX: M85.842 Other specified disorders of bone density and structure, left hand (principal); M79.642 Pain in left hand; R73.01 Impaired fasting glucose; I10 Essential (primary) hypertension
CPT/HCPCS: 36415; 73130; 80053; 80061; 83036; G0463

== ENCOUNTER → 2020-12-13 | Outpatient (REF) | payer MEDICARE ==
[2020-12-13 18:15] LABS: HEMOGLOBIN A1c 5.8 %
[2020-12-13 18:31] LABS: ALBUMIN 4.1 GM/DL (3.2-5.2); ALT/SGPT 21 U/L (12-78); BILIRUBIN,TOTAL 0.8 MG/DL (0.2-1.0); BLOOD UREA NITROGEN 19 MG/DL (7-18); CARBON DIOXIDE LEVEL 27 MEQ/L (21-32); CHLORIDE LEVEL 100 MEQ/L (98-107); CHOLESTEROL LEVEL 218 MG/DL (<200); CHOLESTEROL RISK RATIO 4.638 (<5); CREATININE FOR GFR 0.72 MG/DL (0.55-1.30); GLOMERULAR FILTRATION RATE > 60.0 (>32); GLUCOSE, FASTING 78 MG/DL (70-100); HDL CHOLESTEROL 47 MG/DL (>40); LDL CHOLESTEROL 137 MG/DL (<100); NON-HDL-C 171 MG/DL; POTASSIUM SERUM 4.3 MEQ/L (3.5-5.1); SODIUM LEVEL 135 MEQ/L (136-145); TOTAL PROTEIN 7.1 GM/DL (6.4-8.2); TRIGLYCERIDES LEVEL 168 MG/DL (<150)
== END ==
LOC: M SFHCPLAZ 15:40
PROVIDERS: ATTEND Family Medicine
DX: R73.01 Impaired fasting glucose (principal); I10 Essential (primary) hypertension

== ENCOUNTER → 2020-12-30 | Outpatient (CLI) | payer MEDICARE ==
--- NOTE | 2020-12-30 09:20 | REP ---
INDICATION: ABNORMAL FINDING ON IMAGING COMPARISON: 09/29/2019 TECHNIQUE: Real time pittman scale ultrasound examination using curved array transducer. FINDINGS: Liver demonstrates coarsened echotexture suggesting hepatocellular disease. There is a 1.2 x 1.1 x 0.9 cm cyst in the right hepatic lobe which appears relatively benign. No further focal hepatic lesions are appreciated. The pancreas is normal in appearance. Patient is status post cholecystectomy with mild compensatory biliary ductal dilatation including common bile duct measuring 9.3 mm diameter. Right kidney is normal in reniform shape without hydronephrosis and measures 10.2 x 5.6 x 3.8 cm. No ascites in the right upper quadrant. IMPRESSION: 1. Underlying hepatocellular disease cannot be excluded. Small benign appearing 1.2 cm hepatic cyst in the right lobe noted. <Electronically signed by Law Xavier > 12/30/20 0916
== END ==
LOC: M RAD 07:43
PROVIDERS: ATTEND Student in an Organized Health Care Education/Training Program
DX: R93.89 Abnormal findings on diagnostic imaging of other specified body structures (principal); K76.89 Other specified diseases of liver

== ENCOUNTER 2021-02-18 12:51 | Emergency (ER) | payer MEDICARE ==
[~2021-02-18] VITALS: Ht 147.3 cm; Wt 63.0 kg
[2021-02-18 14:29] LABS: BASO # 0.1 10^3/uL (0.0-0.2); BASO % 0.9 % (0.0-1.0); EOS # 0.1 10^3/uL (0.0-0.5); EOS % 0.8 % (0.0-3.0); HEMATOCRIT 43.7 % (36.0-47.0); HEMOGLOBIN 14.5 g/dl (12.0-15.5); LYMPH # 1.4 10^3/uL (1.5-5.0); LYMPH % 15.1 % (24.0-44.0); MEAN CORPUSCULAR HEMOGLOBIN 30.1 pg (27.0-33.0); MEAN CORPUSCULAR HGB CONC 33.2 g/dl (32.0-36.5); MEAN CORPUSCULAR VOLUME 90.9 fl (80.0-96.0); MONO # 0.7 10^3/uL (0.0-0.8); MONO % 7.6 % (2.0-8.0); NEUTROPHILS # 6.8 10^3/uL (1.5-8.5); NEUTROPHILS % 74.8 % (36.0-66.0); PLATELET COUNT, AUTOMATED 300 10^3/uL (150-450); RED BLOOD COUNT 4.81 10^6/uL (4.00-5.40); WHITE BLOOD COUNT 9.1 10^3/uL (4.0-10.0)
--- NOTE | 2021-02-18 14:49 | REP ---
INDICATION: abd pain. COMPARISON: CT 06/10/2019, RUQ ultrasound 12/30/2020 TECHNIQUE: Scanning through the abdomen and pelvis with both coronal and sagittal reconstructions provided. FINDINGS: CT abdomen: Of the lung bases are without infiltrate or effusion there is some basilar fibro atelectatic change deep sulci with bilaterally without effusion or infiltrate finding in the right middle lobe medially the previous study is not covered in the field of view on today's exam. Stable prominent epicardial fat pads noted. No gross cardiomegaly, pericardial thickening or effusion left atrium is mildly prominent. Lower thoracic and abdominal aorta show atherosclerotic calcifications without aneurysm. No definite hiatal hernia. Right lobe of the liver shows 2 low-density foci unchanged in appearance about 13 and 7 mm in size, consistent with small cysts. No solid hepatic mass or intrahepatic biliary dilatation. No hepatomegaly nor adjacent ascites. Spleen is enlarged shows no focal lesion. Gallbladder surgically absent with clips in the gallbladder fossa common duct in the olinda hepatis and pancreatic head without calcified stone. Pancreas is grossly unremarkable. Near the pancreatic head there is a prominent duodenal diverticulum off the 2nd portion the duodenum unchanged. No abnormal calcifications about the pancreas nor evidence of peripancreatic fluid or inflammatory change. No adenopathy or mass. Adrenal glands unchanged. The kidneys are grossly unremarkable. No hydronephrosis or hydroureter and no ureteral stone. There is atherosclerotic calcification of the abdominal aorta without aneurysm. No periaortic, other retroperitoneal or mesenteric pathologic sized adenopathy. Small bowel loops are without dilatation most are fluid-filled no air-fluid levels. The colostomy takedown has occurred in the upper abdomen since last year's study with good healing. Stool and gas are scattered through the colon without signs of colitis or diverticulitis there is anastomotic suture line in the proximal transverse colon near the flexure region. Bone windows show lower thoracic spine, lumbar region and visualized ribs all grossly intact without acute bony finding the lung windows show no sign of a perforation or free air in the abdomen or pelvis. No generalized ascites. CT abdomen: The bone windows show sacrum, SI joints, pelvis and hips all grossly intact without acute finding. Bladder is only partially filled but without wall thickening stone or mass. Small bowel loops are fluid-filled in the pelvis but without dilatation stone or mass. There is no ventral or inguinal hernia nor pathologic sized inguinal adenopathy. The distal left colon, sigmoid and rectum are no pelvic ascites or adenopathy. Stool-filled with anastomotic suture line in the rectum. IMPRESSION: 1. Interval transverse colostomy takedown in the right upper mid abdomen. 2. Prior sigmoid resection and anastomosis with the suture lines in the rectosigmoid junction. 3. 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 The patient is status post cholecystectomy and hysterectomy. No abdominal or pelvic adenopathy, mass, ascites, perforation or free air. 4. Solid organs in the upper abdomen, gallbladder and stomach are unchanged. No new or acute finding. <Electronically signed by Chapo Gould > 02/18/21 [id number]
[2021-02-18 14:54] LABS: ALBUMIN 4.3 GM/DL (3.2-5.2); BILIRUBIN,DIRECT 0.2 MG/DL (0.0-0.2); BILIRUBIN,TOTAL 0.9 MG/DL (0.2-1.0); TOTAL PROTEIN 7.5 GM/DL (6.4-8.2)
[2021-02-18 15:58] VITALS: BP 174/102
--- NOTE | 2021-02-19 09:30 | ECGEPIP ---
[facility] - ED Test Date: 2021-02-18 Pat Name: SELENA SHEETS Department: Room: - Gender: Female Manager Trust: WES : [id number] Requested By: Nguyen Ventura Order Number: [id number] Reading MD: Nguyen Ventura Measurements Intervals [place] Rate: 54 P: 58 UT: 200 QRS: -36 QRSD: 86 T: 7 QT: 468 QTc: 443 Interpretive Statements Sinus bradycardia with sinus arrhythmia Left axis deviation NSTTW abnormalities similar 02/11/20 Electronically Signed on 02-19-2021 9:29:56 EDT by Nguyen Ventura
== END 2021-02-18 16:07 | disposition home or self-care (01) ==
LOC: M ED 12:51
DX: R14.0 Abdominal distension (gaseous) (principal); R00.1 Bradycardia, unspecified; I10 Essential (primary) hypertension; Z87.891 Personal history of nicotine dependence; Z90.49 Acquired absence of other specified parts of digestive tract; Z88.5 Allergy status to narcotic agent

== ENCOUNTER → 2022-12-06 | Outpatient (CLI) | payer MEDICARE ==
[~2022-12-06] MED LIST changes: +CAND32TA18 PO; -CAND32TA9 PO; +DILT120C41 PO; -DILT1CAP PO
[2022-12-06 11:10] LABS: BASO # 0.1 10^3/uL (0.0-0.2); BASO % 0.9 % (0.0-1.0); EOS # 0.1 10^3/uL (0.0-0.5); EOS % 1.6 % (0.0-3.0); HEMATOCRIT 44.6 % (36.0-47.0); HEMOGLOBIN 14.2 g/dl (12.0-15.5); LYMPH # 1.5 10^3/uL (1.5-5.0); LYMPH % 17.6 % (24.0-44.0); MEAN CORPUSCULAR HEMOGLOBIN 30.7 pg (27.0-33.0); MEAN CORPUSCULAR HGB CONC 31.8 g/dl (32.0-36.5); MEAN CORPUSCULAR VOLUME 96.5 fl (80.0-96.0); MONO # 0.7 10^3/uL (0.0-0.8); MONO % 8.4 % (2.0-8.0); NEUTROPHILS # 6.1 10^3/uL (1.5-8.5); PLATELET COUNT, AUTOMATED 322 10^3/uL (150-450); RED BLOOD COUNT 4.62 10^6/uL (4.00-5.40); WHITE BLOOD COUNT 8.6 10^3/uL (4.0-10.0)
[2022-12-06 11:15] LABS: ALBUMIN 4.2 G/DL (3.2-5.2); ALKALINE PHOSPHATASE 57 U/L (46-116); ALT/SGPT 15 U/L (7.0-40); AST/SGOT 20 U/L (<34); BILIRUBIN,TOTAL 0.8 MG/DL (0.3-1.2); BLOOD UREA NITROGEN 20 MG/DL (9-23); CALCIUM LEVEL 9.9 MG/DL (8.3-10.6); CARBON DIOXIDE LEVEL 28 MMOL/L (20-31); CHLORIDE LEVEL 104 MMOL/L (98-107); CHOLESTEROL LEVEL 226 MG/DL (<200); CHOLESTEROL RISK RATIO 4.67 (<5); CREATININE FOR GFR 0.87 MG/DL (0.55-1.30); GLOMERULAR FILTRATION RATE > 60.0 (>32); GLUCOSE, FASTING 109 MG/DL (74-106); HDL CHOLESTEROL 48.3 MG/DL (>40); LDL CHOLESTEROL 151.5 MG/DL (<100); NON-HDL-C 177.7 MG/DL; POTASSIUM SERUM 4.4 MMOL/L (3.5-5.1); SODIUM LEVEL 139 MMOL/L (136-145); TOTAL PROTEIN 7.1 G/DL (5.7-8.2); TRIGLYCERIDES LEVEL 131 MG/DL (<150)
== END ==
LOC: M PLALAB 08:22
PROVIDERS: ATTEND Student in an Organized Health Care Education/Training Program
DX: I10 Essential (primary) hypertension (principal); G47.00 Insomnia, unspecified

== ENCOUNTER → 2022-12-07 | Outpatient (REF) | payer MEDICARE | LOC: M SFHCPLAZ 16:56 | PROVIDERS: ATTEND Student in an Organized Health Care Education/Training Program | DX: Z53.9 Procedure and treatment not carried out, unspecified reason (principal) ==

== ENCOUNTER → 2022-12-26 | Outpatient (REF) | payer MEDICARE ==
[2022-12-26 13:52] LABS: ALBUMIN 4.2 G/DL (3.2-5.2); ALKALINE PHOSPHATASE 55 U/L (46-116); ALT/SGPT 15 U/L (7.0-40); AST/SGOT 17 U/L (<34); BILIRUBIN,TOTAL 0.8 MG/DL (0.3-1.2); BLOOD UREA NITROGEN 25 MG/DL (9-23); CALCIUM LEVEL 9.5 MG/DL (8.3-10.6); CARBON DIOXIDE LEVEL 27 MMOL/L (20-31); CHLORIDE LEVEL 104 MMOL/L (98-107); CREATININE FOR GFR 0.84 MG/DL (0.55-1.30); GLOMERULAR FILTRATION RATE > 60.0 (>32); GLUCOSE, FASTING 104 MG/DL (74-106); POTASSIUM SERUM 4.2 MMOL/L (3.5-5.1); SODIUM LEVEL 139 MMOL/L (136-145); TOTAL PROTEIN 6.8 G/DL (5.7-8.2)
== END ==
LOC: M SFHCADAM 08:33
PROVIDERS: ATTEND Student in an Organized Health Care Education/Training Program
DX: E78.5 Hyperlipidemia, unspecified (principal)

== ENCOUNTER → 2023-06-22 | Outpatient (CLI) | payer MEDICARE, MEDICAID | LOC: M WHC 13:10 | PROVIDERS: ATTEND Student in an Organized Health Care Education/Training Program | DX: M85.88 Other specified disorders of bone density and structure, other site (principal); M85.851 Other specified disorders of bone density and structure, right thigh; M85.852 Other specified disorders of bone density and structure, left thigh ==

== ENCOUNTER → 2023-12-12 | Outpatient (CLI) | payer MEDICARE, MEDICAID ==
[2023-12-12 13:13] LABS: ALBUMIN 3.7 G/DL (3.2-5.2); ALKALINE PHOSPHATASE 45 U/L (46-116); ALT/SGPT 16 U/L (7.0-40); AST/SGOT 11 U/L (<34); BILIRUBIN,TOTAL 0.7 MG/DL (0.3-1.2); BLOOD UREA NITROGEN 31 MG/DL (9-23); CALCIUM LEVEL 9.1 MG/DL (8.3-10.6); CARBON DIOXIDE LEVEL 26 MMOL/L (20-31); CHLORIDE LEVEL 107 MMOL/L (98-107); GLOMERULAR FILTRATION RATE > 60.0 (>32); GLUCOSE, FASTING 96 MG/DL (74-106); POTASSIUM SERUM 4.5 MMOL/L (3.5-5.1); SODIUM LEVEL 140 MMOL/L (136-145); TOTAL PROTEIN 6.6 G/DL (5.7-8.2)
[2023-12-12 13:17] LABS: TOTAL 25(OH) VITAMIN D 43.2 NG/ML (20.0-100.0)
== END ==
LOC: M PLALAB 10:57
PROVIDERS: ATTEND Student in an Organized Health Care Education/Training Program
DX: M81.0 Age-related osteoporosis without current pathological fracture (principal)

== ENCOUNTER → 2025-05-04 | Outpatient (REF) | payer MEDICARE, MEDICAID ==
[~2025-05-04] MED LIST changes: -AMBI10TA PO; +ZOLP-533 PO
== END ==
LOC: M SFHCPLAZ 09:16
PROVIDERS: ATTEND Student in an Organized Health Care Education/Training Program
DX: Z00.00 Encounter for general adult medical examination without abnormal findings (principal); Z13.1 Encounter for screening for diabetes mellitus; E78.5 Hyperlipidemia, unspecified

== ENCOUNTER → 2025-05-05 | Outpatient (REF) | payer MEDICARE, MEDICAID ==
[2025-05-05 14:27] LABS: BASO # 0.1 10^3/uL (0.0-0.2); BASO % 1.1 % (0.0-1.0); EOS # 0.2 10^3/uL (0.0-0.5); EOS % 1.6 % (0.0-3.0); LYMPH # 2.1 10^3/uL (1.5-5.0); LYMPH % 21.0 % (24.0-44.0); MONO # 0.9 10^3/uL (0.0-0.8); MONO % 9.3 % (2.0-8.0); NEUTROPHILS # 6.7 10^3/uL (1.5-8.5); NEUTROPHILS % 66.1 % (36.0-66.0); PLATELET COUNT, AUTOMATED 322 10^3/uL (150-450)
[2025-05-05 14:32] LABS: ALT/SGPT 20.0 U/L (7.0-40); AST/SGOT 20.0 U/L (<34); CALCIUM LEVEL 9.8 MG/DL (8.3-10.6); CARBON DIOXIDE LEVEL 26.0 MMOL/L (20-31); CHLORIDE LEVEL 105.0 MMOL/L (98-107); CHOLESTEROL LEVEL 255.0 MG/DL (<200); CHOLESTEROL RISK RATIO 4.67 (<5); CREATININE FOR GFR 0.98 MG/DL (0.55-1.30); GLOMERULAR FILTRATION RATE 56.6 (>32); LDL CHOLESTEROL 176.7 MG/DL (<100); NON-HDL-C 200.5 MG/DL; POTASSIUM SERUM 4.5 MMOL/L (3.5-5.1); SODIUM LEVEL 144.0 MMOL/L (136-145); TRIGLYCERIDES LEVEL 119.0 MG/DL (<150)
[2025-05-05 14:56] LABS: ESTIMATED AVERAGE GLUCOSE 126.0 MG/DL (60-110)
== END ==
LOC: M SFHCADAM 08:07
PROVIDERS: ATTEND Student in an Organized Health Care Education/Training Program
DX: Z00.00 Encounter for general adult medical examination without abnormal findings (principal); Z13.1 Encounter for screening for diabetes mellitus; E78.5 Hyperlipidemia, unspecified